=== PATIENT | male | born 1980 | race Asian ===

== ENCOUNTER 2023-11-26 13:09 | Emergency (ER) | payer SELFPAY ==
[~2023-11-26] VITALS: Ht 175.3 cm; Wt 79.5 kg
[2023-11-26 13:11] VITALS: BP 166/118; PULSE 131; RESP 18; TEMP 98.4
[2023-11-26] MEDS: DiphenhydrAMINE HCL 25 MG CAPSULE PO ONE (14:55)
[2023-11-26] MEDS: PredniSONE 20 MG TABLET PO ONE (14:55)
[2023-11-26] MEDS ORDERED: PRED-554 PO (14:56)
[2023-11-26] MEDS ORDERED: DIPH50CA37 PO (14:56)
[2023-11-26] MEDS ORDERED: AMOX1TAB16 PO (15:02)
== END 2023-11-26 15:42 | disposition home or self-care (01) ==
LOC: EMS 13:14
DX: K11.20 Sialoadenitis, unspecified (principal); Z91.013 Allergy to seafood
CPT/HCPCS: 99283; J7512